=== PATIENT | male | born 1955 | race Caucasian/White ===

== ENCOUNTER 2016-12-10 10:47 | Emergency (ER) | payer BC ==
[~2016-12-10] VITALS: Ht 182.9 cm; Wt 100.0 kg
[~2016-12-10 10:47] MED LIST: ALL180 PO; AMOX1TAB43 PO; LSN20 PO; OMEP40CA41 PO; POTA1080 PO; PRD20 PO; TNR25 PO
[2016-12-10 10:52] VITALS: TEMP 36.6; Ht 182.9 cm; Wt 100.0 kg
--- NOTE | 2016-12-10 11:28 | DIAGNOSTIC IMAGING REPORT ---
RIGHT WRIST MIN 3 VIEWS ROUTINE CLINICAL HISTORY: Right wrist pain status post trauma COMPARISON: None. DISCUSSION: There is a nondisplaced hairline fracture of the distal radius. No ulnar fractures are evident. IMPRESSION: Subtle distal radial lucency, suspicious for a nondisplaced hairline fracture. Electronically signed by: Levon Mireles M.D. 12/10/2016 11:26 AM Dictated Date/Time: 12/10/2016 11:25 AM
[2016-12-10] MEDS ORDERED: ACETAMINOPHEN 325 MG TAB PO STA (11:57)
[2016-12-10] MEDS ORDERED: ATOR-24 PO (12:21)
[2016-12-10] MEDS ORDERED: LISI20TA55 PO (12:21)
[2016-12-10 13:20] LABS: CALCIUM 9.8 mg/dl (8.5-10.1); CREATININE 1.6 mg/dl (0.60-1.40); POTASSIUM 3.6 mmol/L (3.5-5.1)
[2016-12-10 14:08] LABS: BASO % 0.2 %; BASO ABS # 0.02 K/uL (0-0.2); COMPLETE YES; EOS % 0.3 %; HEMATOCRIT 45.1 % (42-52); IG% 0.2 %; LYMPH % 10.5 %; LYMPH ABS # 1.24 K/uL (1.2-3.4); MEAN CELL VOLUME 87.2 fL (80-100); MEAN CORPUSCULAR HEMOGLOBIN 29.8 pg (25-34); MEAN CORPUSCULAR HGB CONC 34.1 g/dl (32-36); MEAN PLATELET VOLUME 10.1 fL (7.4-10.4); NEUT % 84.8 %; PLATELET COUNT 217 K/uL (130-400); RED BLOOD COUNT 5.17 M/uL (4.7-6.1); WHITE BLOOD COUNT 11.86 K/uL (4.8-10.8)
[2016-12-10] MEDS ORDERED: HYDR-5688 PO (14:27)
[2016-12-10 15:01] VITALS: BP 112/78; PULSE 69; O2SAT 97
--- NOTE | 2016-12-11 16:16 | EMERGENCY ROOM VISIT NOTE ---
ED Visit Note First contact with patient: 12:00 Chief Complaint: Fall. History of Present Illness: Mr. Sylvester is a 61-year-old white male who is brought into the ED accompanied by his complaining of right wrist pain. Patient reports approximately one hour before he arrived in the emergency department he slipped and fell on ice onto his outstretched right hand injuring his wrist. He reports immediately at the time of the fall he developed pain over the distal radius. Since that time his pain has been constant. He describes his pain as a combination of aching and throbbing. He rates his discomfort 5/10. His pain is nonradiating. His pain worsens with palpation and flexion and extension of the wrist. He has not identified any alleviating factors related to the pain. He has not taken a medications for pain prior to arrival at the hospital. He denies any associated shoulder pain, elbow pain, proximal forearm pain, hand pain, hand weakness/numbness/tingling. Additionally he denies any previous significant injuries or surgeries to the hand or wrist. Additionally he reports that this occurred while he was walking to a bus stop. He reports initially the pain was not severe so he thought he sprained his wrist and continued to wait for the bus stop. On walking onto the [place] reported he started feeling lightheaded and went down to one knee to help relieve his lightheadedness. Passenger's on the bus became concerned. He did call his who came picked him up and brought into the hospital. 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 He reports the lightheadedness lasted approximately 5 minutes and then completely resolved and now he has no symptoms. While being lightheaded he had no dizziness, headache, diaphoresis, chest pain, palpitations, shortness of breath, cough, wheezing abdominal pain, nausea, back pain. Review of Systems: As noted above in history of present illness. All body systems were reviewed and found to be negative as noted above. Past Medical History: As previously noted and hypertension, thyroiditis, dyslipidemia, and status post kidney stone extraction. Current Medications: Urocit-K, Prinzide, Lipitor. Allergies to Medications: Patient denies. Social History: Patient is currently employed; he feels safe in his home environment; he denies tobacco use; he admits to social alcohol use. Physical Examination: Vital Signs: Date Time Temp Pulse Resp B/P Pulse Ox O2 Delivery O2 Flow Rate FiO2 12/10/16 15:01 69 18 112/78 97 12/10/16 12:54 88 18 122/77 12/10/16 10:52 36.6 59 18 117/73 95 Room Air GENERAL: 61-year-old male in mild distress due to pain, nontoxic-appearing, afebrile and hemodynamically stable. NEUROLOGICAL: Awake, alert and oriented to person, place and time. Answering questions appropriately and following commands. Normal gait. Good hand eye coordination. No focal motor sensory deficits. Cranial nerves II through XII grossly intact. Short-term and long-term recall. SKIN: Warm, dry and pink. No soft tissue trauma noted. HEENT: Atraumatic and normocephalic. PERRLA. EOMI without nystagmus. Sclera white and conjunctiva pink. No drainage from naris. Oral cavity moist and pink. Pharynx is nonerythematous or edematous. Speech normal. No lymphadenopathy. Trachea midline. No jugular venous distention. No carotid bruits. BACK: No tenderness over the bony cervical, thoracic and lumbar spine. No CVA tenderness. THORAX: Lungs sounds are clear to auscultation and equal bilaterally with symmetrical chest wall. No wheezing, rales or rhonchi. HEART: Regular rate and rhythm. No gallops, rubs or murmurs are appreciated. ABDOMEN: Flat, soft and nontender. Positive bowel sounds in all quadrants. No guarding, rigidity or organomegaly. EXTREMITIES: Moves all extremities well on command and with purpose. All distal neurovascular statuses are intact and equal bilaterally. No calf tenderness or cords. RIGHT WRIST: No gross bony deformity. No tenderness over the elbow or proximal forearm. Mild tenderness over the distal radius with mild swelling but no bony deformity or crepitus. No tenderness throughout the hands and fingers. Decreased range of motion primarily with flexion and radial deviation. Throughout the hand the skin was warm and pink and capillary refill is brisk. He was able to distinguish light sensations through all dermatomes. ED Course: Patient is assessed as noted above. Laboratory Testing: Test 12/10/16 12:50 12/10/16 12:55 Range/Units White Blood Count 11.86 4.8-10.8 K/uL Red Blood Count 5.17 4.7-6.1 M/uL Hemoglobin 15.4 14.0-18.0 g/dL Hematocrit 45.1 42-52 % Mean Corpuscular Volume 87.2 80-100 fL Mean Corpuscular Hemoglobin 29.8 25-34 pg Mean Corpuscular Hemoglobin Concent 34.1 32-36 g/dl Platelet Count 217 130-400 K/uL Mean Platelet Volume 10.1 7.4-10.4 fL Neutrophils (%) (Auto) 84.8 % Lymphocytes (%) (Auto) 10.5 % Monocytes (%) (Auto) 4.0 % Eosinophils (%) (Auto) 0.3 % Basophils (%) (Auto) 0.2 % Neutrophils # (Auto) 10.07 1.4-6.5 K/uL Lymphocytes # (Auto) 1.24 1.2-3.4 K/uL Monocytes # (Auto) 0.47 0.11-0.59 K/uL Eosinophils # (Auto) 0.04 0-0.5 K/uL Basophils # (Auto) 0.02 0-0.2 K/uL RDW Standard Deviation 44.5 36.4-46.3 fL RDW Coefficient of Variation 13.9 11.5-14.5 % Immature Granulocyte % (Auto) 0.2 % Immature Granulocyte # (Auto) 0.02 0.00-0.02 K/uL Sodium Level 140 136-145 mmol/L Potassium Level 3.6 3.5-5.1 mmol/L Chloride Level 101 98-107 mmol/L Carbon Dioxide Level 29 21-32 mmol/L Anion Gap 10.0 3-11 mmol/L Blood Urea Nitrogen 26 7-18 mg/dl Creatinine 1.60 0.60-1.40 mg/dl Est Creatinine Clear Calc Drug Dose 58.6 ml/min Estimated GFR () 52.7 Estimated GFR (Non- 45.5 BUN/Creatinine Ratio 16.0 10-20 Random Glucose 98 70-99 mg/dl Calcium Level 9.8 8.5-10.1 mg/dl Total Bilirubin 0.5 0.2-1 mg/dl Direct Bilirubin 0.1 0-0.2 mg/dl Aspartate Amino Transf (AST/SGOT) 33 15-37 U/L Alanine Aminotransferase (ALT/SGPT) 43 12-78 U/L Alkaline Phosphatase 140 45-117 U/L Total Protein 8.6 6.4-8.2 gm/dl Albumin 4.6 3.4-5.0 gm/dl Bedside Troponin I 0.000 0-0.045 ng/ml Right Wrist X-Rays: Were read by myself and shows a subtle distal lucency over the distal radius suspicious for nondisplaced fracture. EKG: Was read by myself and reviewed with Dr. Tapia; shows sinus bradycardia with a first-degree AV block and ventricular rate of 53 bpm. Left axial deviation. No acute ST changes indicating ischemia, injury or infarction. This was compared to a previous from March 2016 and shows a normal sinus rhythm with no AV block. Patient was given ice and 650 mg of acetaminophen by mouth for pain. Patient was placed in a Ortho-Glass volar splint. Patient's case was reviewed with Dr. Tapia; we agreed on diagnostic approach, treatment, disposition and plan. Patient are educated about tonight's findings and instructed on his treatment plan; they verbalizes understanding and agreement with this plan. Clinical Impression: Fracture of the right distal radius. Near-syncope. Disposition: Patient discharged home in stable condition accompanied by his ; prior to departure he was reassessed and subjectively reported he was feeling much better. He continued to have no sensations of feeling like he needed to pass out. Plan: Comfort measures were discussed with the patient including rest, ice, elevation , splint use and a sliding pain scale of ibuprofen, acetaminophen and [place]. Patient was encouraged to follow-up with his case specialist for specialty care and treatment. Patient was encouraged return ED for worsening/uncontrolled pain, uncontrolled swelling, hand/finger weakness/numbness/tingling or any new/concerning symptoms.
== END 2016-12-10 15:02 | disposition home or self-care (01) ==
LOC: EDBD 10:47 → C.EDC 10:48
DX: S52.501A Unspecified fracture of the lower end of right radius, initial encounter for closed fracture (principal); R55 Syncope and collapse; W00.0XXA Fall on same level due to ice and snow, initial encounter; I10 Essential (primary) hypertension; E78.5 Hyperlipidemia, unspecified; E06.9 Thyroiditis, unspecified; Z87.442 Personal history of urinary calculi; Z79.899 Other long term (current) drug therapy

== ENCOUNTER → 2017-03-23 | Outpatient (CLI) | payer BC ==
[~2017-03-23] MED LIST changes: -ALL180 PO; -AMOX1TAB43 PO; +ATOR-24 PO; +HYDR-5688 PO; +LISI20TA55 PO; -LSN20 PO; -OMEP40CA41 PO; +POTA540T PEG; -PRD20 PO; -TNR25 PO; +TRAM-10 PO
--- NOTE | 2017-03-23 16:53 | DIAGNOSTIC IMAGING REPORT ---
KUB CLINICAL HISTORY: Nephrolithiasis. FINDINGS: 2 AP supine abdominal radiographs are compared to study dated 02/08/2016. There is a nonobstructed abdominal bowel gas pattern noting moderate colonic fecal retention. A cluster of calcifications is again seen projecting over the right lower pole and measuring up to 10 mm in aggregate dimension. At least 2 additional smaller calculi project over the interpolar right kidney and measure up to 5 mm. No calcifications are seen projecting over the left kidney or along the course of the ureters. Small phleboliths are seen in the pelvis. The bony structures appear intact. Degenerative change is noted in the lumbar spine and hips. IMPRESSION: Right-sided nephrolithiasis, similar to the 02/08/2016 examination. Electronically signed by: Federico Kurtz M.D. 03/23/2017 4:51 PM Dictated Date/Time: 03/23/2017 4:50 PM
--- NOTE | 2017-04-07 09:28 | CODING QUERY MEDICAL NECESSITY ---
SUPPORTING DIAGNOSIS NEEDED A supporting diagnosis is required for the test/procedure performed on this patient in order for us to be reimbursed by the patient's insurance. Please provide a supporting diagnosis for the following test/procedure listed below next to the test name along with your signature. *If there is no additional diagnosis for this patient that would support the following test/procedure please document that below next to the test/procedure. Test(s)/Procedure(s) that require a supporting diagnosis: DOS 03/23 * PSA DIAGNOSIS: Provider Signature: Date: Thank you Karina Ramos Health Information Management Once completed, please kindly fax back to [phone] For questions please call [phone]
== END | disposition home or self-care (01) ==
LOC: C.LAB 16:22
PROVIDERS: ATTEND Urology
DX: Z00.00 Encounter for general adult medical examination without abnormal findings (principal); N20.0 Calculus of kidney; Z12.5 Encounter for screening for malignant neoplasm of prostate

== ENCOUNTER → 2017-04-09 | Outpatient (CLI) | payer BC ==
--- NOTE | 2017-04-09 11:11 | DIAGNOSTIC IMAGING REPORT ---
RIGHT ELBOW MIN 3 VIEWS ROUTINE CLINICAL HISTORY: Right elbow pain COMPARISON: None. DISCUSSION: The fat pads are not displaced. No fractures or dislocations are visualized. There are no destructive lesions. IMPRESSION: No bony abnormalities identified. Electronically signed by: Levon Mireles M.D. 04/09/2017 11:10 AM Dictated Date/Time: 04/09/2017 11:10 AM
== END | disposition home or self-care (01) ==
LOC: C.RAD1850 11:00
PROVIDERS: ATTEND Family Medicine
DX: M25.521 Pain in right elbow (principal)

== ENCOUNTER 2017-04-28 08:56 | Emergency (ER) | payer BC ==
[~2017-04-28] VITALS: Ht 182.9 cm; Wt 110.4 kg
[~2017-04-28 08:56] MED LIST changes: -POTA540T PEG; -TRAM-10 PO
[2017-04-28 08:57] VITALS: TEMP 36.6; Ht 182.9 cm; Wt 110.4 kg
[2017-04-28] MEDS ORDERED: HYDROCODONE/ACETAMOPHEN 5/325MG TAB PO STA (09:54)
[2017-04-28] MEDS ORDERED: HYDR-5688 PO (09:57)
--- NOTE | 2017-04-28 10:00 | EMERGENCY ROOM VISIT NOTE ---
ED Visit Note First contact with patient: 09:10 CHIEF COMPLAINT: Elbow pain HISTORY OF PRESENT ILLNESS: This 61-year-old male patient presents to the emergency department complaining of pain in the right elbow that started 4 weeks ago. There was no precipitating trauma for this pain. Patient was seen at an urgent care 3 weeks ago where he had x-rays of the elbow that were negative, was told he most likely had tennis elbow and was given a short course of steroids. Patient initially had improvement with the steroids but then states the pain got worse he saw his PCP 2 weeks ago who also agreed with the diagnosis of tennis elbow and placed him on tramadol. Patient states he was not taking the tramadol until the last few days when the pain got more severe over this weekend. The pain is worse with certain movements and if he lies on his right arm. The patient rates their pain as sharp, severe and 8/10 at its worse, currently states 5/10. The patient has taken tramadol and ibuprofen for relief of the pain. The patient has not had previous fractures to this elbow. The patient does not have any numbness or tingling. The patient denies any other injuries. REVIEW OF SYSTEMS: A 6 system review of systems was completed with positives and pertinent negatives listed in the HPI. ALLERGIES: None MEDICATIONS: See chart PMH: See chart SOCIAL HISTORY: , lives with his at home. PHYSICAL EXAM: Vital Signs: Reviewed Nurse's notes, vital signs stable. GENERAL : Pleasant and cooperative, in no acute distress, well-developed, well- nourished. SKIN: The skin was without rashes, erythema, edema, warmth, or bruising. Capillary reflex less than 3 seconds. MUSCULOSKELETAL: The patient is moving his elbow freely without any obvious pain. There is mild tenderness over the posterior muscle just above the right elbow joint, no bony tenderness. There is tenderness with flexion of the right elbow, no pain with extension, internal and external rotation. There is no tenderness of the shoulder, wrist, or hand. The patient is able to give a thumbs up, make an OK sign, and a #3 with their fingers. Radial pulse 2+. NEURO: Patient was alert and oriented to person place and time. Normal sensation to light and sharp touch. EMERGENCY DEPARTMENT COURSE: I examined the patient. Differential diagnosis includes tendinitis, bursitis, a skeletal pain, biceps tendinopathy. An x-ray of the right elbow from 04/09 at the urgent care was reviewed myself, radiology read also present and shows no acute abnormality. The patient's primary concern is in management. He does have an appointment set up in 2 days with orthopedics. I had a lengthy discussion with the patient and his regarding the appropriate use of narcotics, patient's pain was treated with an oral dose of [place] here in the ED and Rx for 2 days provided to the patient on the with the understanding that he would receive any further pain management through his PCP or orthopedic provider. The patient verbalized understanding and agreement to this plan. The patient was discharged home in stable condition. Problem List Medical Problems: (1) Hyperlipidemia Status: Chronic (2) Hypertension Status: Chronic (3) Kidney stones Status: Chronic Current/Historical Medications Scheduled Atorvastatin (Lipitor), 20 MG PO DAILY Lisinopril/Hctz (Prinzide 20-25MG), 1 TAB PO DAILY Potassium Citrate (Alkalinizer (Potassium Citrate), 1,080 MG PEG BID Scheduled PRN Tramadol (Ultram), 50 MG PO Q8H PRN for Pain Allergies Coded Allergies: No Known Allergies (Unverified , 12/10/16) Vital Signs Date Time Temp Pulse Resp B/P Pulse Ox O2 Delivery O2 Flow Rate FiO2 04/28/17 10:32 95 18 110/72 97 04/28/17 08:57 36.6 106 18 106/70 96 Room Air Medications Administered Medications (Trade) Dose Ordered Sig/Oanh Route Start Time Stop Time Status Last Admin Dose Admin Acetaminophen/ Hydrocodone Bitart ([place] 5/325 Tab) 2 tab NOW STAT PO 04/28/17 09:54 04/28/17 09:55 DC 04/28/17 10:10 2 TAB Departure Information Impression Primary Impression: Elbow pain, right Dispostion Home / Self-Care Condition GOOD Referrals Courtney Vogel PA-C (PCP) Patient Instructions ED Bursitis Elbow Olecranon, [facility] Additional Instructions Keep your scheduled appointment with orthopedics on . Continue to take ibuprofen 600 mg every 6-8 hours to treat the inflammation and pain. Apply ice to the elbow for 20 minutes at a time to help with inflammation. You may take the [place], which is a narcotic medication, 1-2 tablets every 4 hours as needed for severe pain. Do not drive, operate machinery, or drink alcohol while taking this medication. You will not be able to receive refills of this medication from the emergency department. Any further pain medication will need to come from your orthopedic doctor or your primary care doctor. Please return to the ER for severe swelling, redness, warmth of the elbow, numbness or weakness of the arm, or any other concerns.
[2017-04-28] MEDS ORDERED: POTA540T PEG (10:30)
[2017-04-28] MEDS ORDERED: TRAM-10 PO (10:30)
[2017-04-28 10:32] VITALS: BP 110/72; PULSE 95; O2SAT 97
== END 2017-04-28 10:33 | disposition home or self-care (01) ==
LOC: C.EDB 08:57 → C.EDA 10:33
DX: M25.521 Pain in right elbow (principal); E78.5 Hyperlipidemia, unspecified; I10 Essential (primary) hypertension; Z87.442 Personal history of urinary calculi; Z79.899 Other long term (current) drug therapy

== ENCOUNTER → 2017-10-19 | Outpatient (CLI) | payer BC ==
[~2017-10-19] MED LIST changes: -HYDR-5688 PO; -POTA1080 PO; +POTA540T PEG; +TRAM-10 PO
[2017-10-19 15:17] LABS: BLOOD UREA NITROGEN 22 mg/dl (7-18); BUN/CREATININE RATIO 14.2 (10-20); CALCIUM 8.8 mg/dl (8.5-10.1); CARBON DIOXIDE 27 mmol/L (21-32); CHLORIDE 103 mmol/L (98-107); CREATININE 1.52 mg/dl (0.60-1.40); GLUCOSE 105 mg/dl (70-99); MAGNESIUM 2.2 mg/dl (1.8-2.4); POTASSIUM 3.8 mmol/L (3.5-5.1); SODIUM 139 mmol/L (136-145)
== END | disposition home or self-care (01) ==
LOC: C.LAB1850 13:31
PROVIDERS: ATTEND Internal Medicine Nephrology
DX: N25.81 Secondary hyperparathyroidism of renal origin (principal); I10 Essential (primary) hypertension; E55.9 Vitamin D deficiency, unspecified

== ENCOUNTER → 2018-03-18 | Outpatient (CLI) | payer OTHER ==
[2018-03-18 12:21] LABS: BLOOD UREA NITROGEN 24 mg/dl (7-18)
== END | disposition home or self-care (01) ==
LOC: C.LAB1850 11:22
PROVIDERS: ATTEND Urology
DX: N20.0 Calculus of kidney (principal)

== ENCOUNTER → 2018-04-06 | Outpatient (CLI) | payer OTHER ==
--- NOTE | 2018-04-06 10:58 | DIAGNOSTIC IMAGING REPORT ---
KUB CLINICAL HISTORY: 62 years-old Male presenting with N20.0 Nephrolithiasis [id number]. TECHNIQUE: Single supine view of the abdomen was obtained. COMPARISON: 03/23/2017. FINDINGS: Nonobstructive bowel gas pattern. No gross pneumoperitoneum. Cluster of calculi at the upper and lower poles of the right kidney. No radiographically apparent left renal calculi. Calcifications along the courses of the ureters. Stable distribution of pelvic phleboliths. Osseous structures normal. IMPRESSION: 1. Right nephrolithiasis similar in appearance to prior exam. No radiographic evidence of left renal or ureteral calculi. Electronically signed by: Zackary Jackman M.D. 04/06/2018 10:57 AM Dictated Date/Time: 04/06/2018 10:55 AM
== END | disposition home or self-care (01) ==
LOC: C.RAD 10:30
PROVIDERS: ATTEND Urology
DX: N20.0 Calculus of kidney (principal)